=== PATIENT | female | born 1990 | race African-American/Black ===

== ENCOUNTER 2016-09-01 15:16 | Emergency (ER) | payer SELFPAY ==
[~2016-09-01] VITALS: Ht 154.9 cm; Wt 75.0 kg
[~2016-09-01 15:16] MED LIST: MULT-1146 PO; PREN-88 PO
[2016-09-01] MEDS ORDERED: ACETAMINOPHEN 325MG TABLET PO ONE (18:15)
[2016-09-01] MEDS ORDERED: IPRATROPIUM/ALBUTEROL 0.5-3(2.5)MG/3ML NEB HHN ONE (18:15)
[2016-09-01] MEDS ORDERED: PREDNISONE 20MG TABLET PO STA (19:05)
[2016-09-01] MEDS ORDERED: LIDOCAINE HCL 1% 20ML VIAL (Pyxis) INJ MC ONE (19:30)
[2016-09-01] MEDS ORDERED: CEFTRIAXONE SODIUM 1 G/VIAL IM ONE (19:30)
[2016-09-01 20:52] VITALS: BP 126/72
== END 2016-09-01 20:55 | disposition home or self-care (01) ==
LOC: ER 16:07
DX: J18.9 Pneumonia, unspecified organism (principal); J45.909 Unspecified asthma, uncomplicated; Z88.6 Allergy status to analgesic agent; Z79.899 Other long term (current) drug therapy
CPT/HCPCS: 71010; 81025; 94640; 96372; 99283; J0696; J3490; J7512; J7620

== ENCOUNTER 2016-10-23 12:17 | Emergency (ER) | payer SELFPAY ==
[~2016-10-23] VITALS: Ht 154.9 cm; Wt 77.0 kg
[2016-10-23] MEDS ORDERED: ACETAMINOPHEN 325MG TABLET PO STA (18:46)
[2016-10-23] MEDS ORDERED: ONDANSETRON 4MG ODT PO ONE (19:00)
[2016-10-23 19:13] LABS: BASOPHILS % 0.4 % (0.0-2.0); EOSINOPHILS % 1.1 % (0.0-5.0); HEMATOCRIT. 36.8 % (36.0-48.0); LYMPHOCYTES % 23.6 % (20.0-50.0); MEAN CORPUSCULAR HEMOGLOBIN 27.6 pg (28.0-32.0); MEAN CORPUSCULAR VOLUME 84.9 fL (81.0-99.0); MEAN PLATELET VOLUME 8.9 fl (7.4-10.4); MONOCYTES % 11.4 % (2.0-8.0); NEUTROPHILS % 63.5 % (40.0-76.0); PLATELET 320 x1000/uL (130-400); RED BLOOD CELL COUNT 4.34 mill/uL (4.2-5.4); RED CELL DISTRIBUTION WIDTH 14.4 % (11.6-14.6)
[2016-10-23 19:20] LABS: CHLORIDE 103 mEq/L (98-107)
[2016-10-23 19:26] LABS: CARBON DIOXIDE 25 mEq/L (21-32)
[2016-10-23 19:42] LABS: *AMPHETAMINES SCREEN URINE NEGATIVE (NEGATIVE); *BARBITURATES SCREEN URINE NEGATIVE (NEGATIVE); *COCAINE SCREEN URINE NEGATIVE (NEGATIVE); CANNABINOID URINE SCREEN NEGATIVE (NEGATIVE); METHADONE URINE SCREEN NEGATIVE (NEGATIVE); OPIATES URINE SCREEN NEGATIVE (NEGATIVE); PHENCYCLIDINE URINE SCREEN NEGATIVE (NEGATIVE)
[2016-10-23 19:46] LABS: B-HCG QUANTITATIVE 139556 mIU/mL (<3)
[2016-10-23 19:57] VITALS: BP 148/69
[2016-10-23 20:02] LABS: *BENZODIAZEPINES SCREEN URINE PRESUMTIVE POSITIVE (NEGATIVE)
== END 2016-10-23 23:07 | disposition home or self-care (01) ==
LOC: ER 23:01
DX: O20.0 Threatened abortion (principal); Z3A.01 Less than 8 weeks gestation of pregnancy
CPT/HCPCS: 36415; 76801; 76802; 80048; 80305; 81025; 84702; 85025; 86850; 86900; 86901; 99285; Q0162

== ENCOUNTER 2016-11-23 07:46 | Emergency (ER) | payer MEDICAID ==
[~2016-11-23] VITALS: Ht 162.6 cm; Wt 90.0 kg
[2016-11-23 09:15] LABS: BASOPHILS % 0.2 % (0.0-2.0); EOSINOPHILS % 1.1 % (0.0-5.0); HEMATOCRIT. 33.9 % (36.0-48.0); HEMOGLOBIN. 11.1 g/dL (12.0-16.0); LYMPHOCYTES % 15.5 % (20.0-50.0); MEAN CORPUSCULAR HEMOGLOBIN 27.4 pg (28.0-32.0); MEAN CORPUSCULAR VOLUME 83.7 fL (81.0-99.0); MEAN PLATELET VOLUME 8.5 fl (7.4-10.4); MONOCYTES % 9.4 % (2.0-8.0); NEUTROPHILS % 73.8 % (40.0-76.0); PLATELET 304 x1000/uL (130-400); RED BLOOD CELL COUNT 4.06 mill/uL (4.2-5.4); RED CELL DISTRIBUTION WIDTH 13.1 % (11.6-14.6)
[2016-11-23 09:20] LABS: CHLORIDE 107 mEq/L (98-107)
[2016-11-23] MEDS: ONDANSETRON 4MG ODT PO ONE (09:34)
[2016-11-23] MEDS: ACETAMINOPHEN 325MG TABLET PO STA (09:34)
[2016-11-23 09:36] LABS: CARBON DIOXIDE 25 mEq/L (21-32)
[2016-11-23 09:43] LABS: B-HCG QUANTITATIVE 126335 mIU/mL (<3)
[2016-11-23 09:47] LABS: GLUCOSE URINE NEGATIVE (NEGATIVE); KETONES URINE 1+ (NEGATIVE); LEUKOCYTE ESTERASE URINE 1+ (NEGATIVE); NITRITE URINE NEGATIVE (NEGATIVE); OCCULT BLOOD URINE TRACE (NEGATIVE); PROTEIN URINE TRACE (NEGATIVE)
[2016-11-23 09:48] LABS: CLARITY URINE CLOUDY (CLEAR); COLOR URINE YELLOW (YELLOW)
[2016-11-23 10:41] VITALS: BP 109/45
== END 2016-11-23 11:26 | disposition home or self-care (01) ==
LOC: ER 07:57
DX: O03.9 Complete or unspecified spontaneous abortion without complication (principal); O23.41 Unspecified infection of urinary tract in pregnancy, first trimester; N39.0 Urinary tract infection, site not specified; Z3A.11 11 weeks gestation of pregnancy; Z37.9 Outcome of delivery, unspecified
CPT/HCPCS: 36415; 76801; 76802; 76817; 80048; 81001; 84702; 85025; 86850; 86900; 86901; 99285; Q0162

== ENCOUNTER 2017-01-29 11:48 | Observation (INO) | payer MEDICAID ==
[~2017-01-29] VITALS: Ht 154.9 cm; Wt 76.2 kg
[2017-01-29 12:37] LABS: CLARITY URINE CLOUDY (CLEAR); COLOR URINE DARK YELLOW (YELLOW); GLUCOSE URINE NEGATIVE (NEGATIVE); KETONES URINE NEGATIVE (NEGATIVE); LEUKOCYTE ESTERASE URINE 3+ (NEGATIVE); NITRITE URINE NEGATIVE (NEGATIVE); OCCULT BLOOD URINE NEGATIVE (NEGATIVE); PH URINE 6.5 (4.5-8.0); PROTEIN URINE TRACE (NEGATIVE); SPECIFIC GRAVITY URINE 1.023 (1.005-1.030)
[2017-01-29] MEDS: LACTATED RINGERS 1,000 ML IV SCH ×2 (12:48→14:30)
[2017-01-29] MEDS ORDERED: CEFAZOLIN 2,000 MG in DEXT 5% WATER 100 ML IV ONE (13:30)
[2017-01-29] MEDS ORDERED: ASPI-1159 PO (13:33)
== END 2017-01-29 15:00 | disposition home or self-care (01) ==
LOC: L&D 11:48
PROVIDERS: ADMIT Obstetrics & Gynecology; ATTEND Obstetrics & Gynecology
DX: O26.892 Other specified pregnancy related conditions, second trimester (principal); R10.9 Unspecified abdominal pain; M54.5 Low back pain; R42 Dizziness and giddiness; O30.002 Twin pregnancy, unspecified number of placenta and unspecified number of amniotic sacs, second trimester; Z3A.20 20 weeks gestation of pregnancy
CPT/HCPCS: 81001; 96365; 99281; G0378; J0690; J7120; 96360; 96361; J7060

== ENCOUNTER 2018-12-01 12:45 | Emergency (ER) | payer MEDICAID ==
[~2018-12-01] VITALS: Ht 154.9 cm; Wt 74.5 kg
[~2018-12-01 12:45] MED LIST changes: -MULT-1146 PO
[2018-12-01 13:43] VITALS: BP 125/53
[2018-12-01] MEDS ORDERED: AMOXICILLIN 500 MG CAPSULE PO ONE (14:00)
[2018-12-01] MEDS ORDERED: ACETAMINOPHEN WITH CODEINE 300/30MG TABLET PO ONE (14:00)
== END 2018-12-01 14:55 | disposition home or self-care (01) ==
LOC: ER 12:45
DX: K08.89 Other specified disorders of teeth and supporting structures (principal); J45.909 Unspecified asthma, uncomplicated; Z98.890 Other specified postprocedural states; Z88.6 Allergy status to analgesic agent
CPT/HCPCS: 99283

== ENCOUNTER 2021-06-20 16:34 | Emergency (ER) | payer MEDICAID ==
[~2021-06-20] VITALS: Ht 160 cm; Wt 80.0 kg
[2021-06-20] MEDS ORDERED: MORPHINE SULFATE 10MG/5ML ORAL SOLN UDC PO PRN (19:45)
[2021-06-20 21:22] VITALS: BP 143/71
[2021-06-20] MEDS ORDERED: HYDR-4001 MT (22:19)
== END 2021-06-20 22:37 | disposition home or self-care (01) ==
LOC: ER 16:34
DX: R07.89 Other chest pain (principal); R51.9 Headache, unspecified; G89.11 Acute pain due to trauma; T76.21XA Adult sexual abuse, suspected, initial encounter; Y08.89XA Assault by other specified means, initial encounter; Y93.89 Activity, other specified; Y92.59 Other trade areas as the place of occurrence of the external cause; E11.9 Type 2 diabetes mellitus without complications; I10 Essential (primary) hypertension; J45.909 Unspecified asthma, uncomplicated
CPT/HCPCS: 71111; 99284